=== PATIENT | male | born 1995 | race Caucasian/White ===

== ENCOUNTER 2021-06-15 02:22 | Emergency (ER) | payer MEDICAID, OTHER ==
[~2021-06-15] VITALS: Ht 183 cm; Wt 72.6 kg
[2021-06-15] MEDS ORDERED: KETOROLAC 30 MG/ML VIAL IVP STA (02:53)
[2021-06-15] MEDS ORDERED: LACTATED RINGERS 1,000 ML IV ONE (03:00)
[2021-06-15 03:02] LABS: BASOPHILS % (AUTO) 1 % (0-10); EOSINOPHILS # (AUTO) 0.1 10^3/uL (0.0-0.3); EOSINOPHILS % (AUTO) 1 % (0-10); HEMATOCRIT 39 % (40-54); HEMOGLOBIN 13.6 g/dL (13.3-17.7); LYMPHOCYTES # (AUTO) 2.3 10^3/uL (1.0-4.0); LYMPHOCYTES % (AUTO) 26 % (12-44); MEAN CORPUSCULAR HEMOGLOBIN 33 pg (25-34); MEAN CORPUSCULAR HGB CONC 35 g/dL (32-36); MEAN CORPUSCULAR VOLUME 95 fL (80-99); MEAN PLATELET VOLUME 10.2 fL (9.0-12.2); MONOCYTES # (AUTO) 0.6 10^3/uL (0.0-1.0); MONOCYTES % (AUTO) 7 % (0-12); NEUTROPHILS # (AUTO) 5.7 10^3/uL (1.8-7.8); NEUTROPHILS % (AUTO) 65 % (42-75); PLATELET COUNT 201 10^3/uL (130-400); WHITE BLOOD COUNT 8.7 10^3/uL (4.3-11.0)
[2021-06-15 03:03] LABS: BILIRUBIN,URINE NEGATIVE (NEGATIVE); CLARITY,URINE CLEAR; COLOR,URINE YELLOW; GLUCOSE, URINE (UA) NEGATIVE (NEGATIVE); KETONES,URINE TRACE (NEGATIVE); LEUKOCYTE ESTERASE ,URINE NEGATIVE (NEGATIVE); NITRITE,URINE NEGATIVE (NEGATIVE); PROTEIN,URINE NEGATIVE (NEGATIVE)
[2021-06-15 03:06] LABS: ALBUMIN 4.8 GM/DL (3.2-4.5); CHLORIDE 103 MMOL/L (98-107); POTASSIUM 3.5 MMOL/L (3.6-5.0); SODIUM 140 MMOL/L (135-145)
[2021-06-15 03:07] LABS: CALCIUM 9.8 MG/DL (8.5-10.1)
[2021-06-15 03:08] LABS: GLUCOSE 161 MG/DL (70-105); TOTAL PROTEIN 8.3 GM/DL (6.4-8.2)
[2021-06-15 03:09] LABS: CARBON DIOXIDE 23 MMOL/L (21-32)
[2021-06-15 03:10] LABS: RBC,URINE >100 /HPF
[2021-06-15 03:10] LABS: BILIRUBIN,TOTAL 1.1 MG/DL (0.1-1.0)
[2021-06-15 03:11] LABS: BACTERIA,URINE NEGATIVE /HPF; CALCIUM OXALATE CRYSTALS,UR FEW /LPF
[2021-06-15 03:12] LABS: ALKALINE PHOSPHATASE 69 U/L (40-136); CREATININE SERUM 1.35 MG/DL (0.60-1.30); GFR ESTIMATED 75
[2021-06-15 03:13] LABS: BUN/CREATININE RATIO 13
[2021-06-15 03:15] LABS: ALANINE AMINOTRANSFERASE 14 U/L (0-55)
[2021-06-15] MEDS ORDERED: ONDANSETRON 4 MG/2 ML (SDV) Z0FRAN IVP ONE (03:15)
[2021-06-15] MEDS ORDERED: HYDR-34 PO (03:43)
[2021-06-15] MEDS ORDERED: ONDA4TAB11 PO (03:43)
[2021-06-15] MEDS ORDERED: TMSL.4C PO (03:43)
[2021-06-15] MEDS ORDERED: RX-ONDANSETRON 4 MG ODT (ZOFRAN) PPK #4 PO STA (03:44)
--- NOTE | 2021-06-15 03:44 | ED GU-Male ---
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 REPORTS TAKING 500 MG IBUPROFEN APPROX 30 MIN AGO WITH NO RELIEF. ALSO REPORTS ATTEMPTING TO STRETCH HIS MUSCLES AND TAKE A HOT SHOWER TO HELP WITH PAIN. DENIES FEVER, N/V/D. PT BENT OVER IN PAIN WHEN CALLED TO ROOM AND CONTINUES TO MOVE AROUND IN ATTEMPT TO GET COMFORTABLE IN ROOM. Source: patient History of Present Illness Date Seen by Provider: Jun 15, 2021 Time Seen by Provider: 02:53 Initial Comments PT ARRIVES VIA POV FROM HOME C/O SUDDEN ONSET OF SEVERE RIGHT FLANK AND RIGHT MID ABDOMINAL PAIN--BEGAN 1 HOUR AGO NO RELIEF WITH IBUPROFEN NO NAUSEA/VOMITING NO FEVER NO URINARY SYMPTOMS NO HISTORY OF SIMILAR PCP: NONE Allergies and Home Medications Allergies Coded Allergies: No Known Drug Allergies (Unverified , 06/15/21) Patient Home Medication List Home Medication List Reviewed: Yes Hydrocodone Bit/Acetaminophen (HYDROcodone/APAP 7.5/325 TAB) 1 Ea Tablet, 1 EA PO Q4-6 PRN for PAIN Prescribed by: FARZANA KAUFFMAN on 06/15/21 0344 Ketorolac Tromethamine (Ketorolac Tromethamine) 10 Mg Tablet, 10 MG PO Q6H Prescribed by: FARZANA KAUFFMAN on 06/15/21 0353 Ondansetron (Ondansetron Odt) 4 Mg Tab.rapdis, 4 MG PO Q4H Prescribed by: FARZANA KAUFFMAN on 06/15/21 0343 Tamsulosin HCl (Flomax) 0.4 Mg Cap, 0.4 MG PO DAILY Prescribed by: FARZANA KAUFFMAN on 06/15/21 0343 Review of Systems Review of Systems Constitutional: no symptoms reported Respiratory: no symptoms reported Cardiovascular: no symptoms reported Gastrointestinal: see HPI Genitourinary: see HPI; denies burning, denies dysuria, denies frequency; flank pain; denies hematuria, denies pain, denies urgency Musculoskeletal: see HPI, back pain Skin: no symptoms reported Psychiatric/Neurological: No Symptoms Reported Endocrine: No Symptoms Reported Hematologic/Lymphatic: No Symptoms Reported Past Adrpggg-Zzpnio-Fwwkvz Hx Patient Social History Tobacco Use?: No Use of E-Cig and/or Vaping dev: Yes E-Cig or Vaping type used: Nicotine Use of E-Cig and/or Vaping Steven: Current Someday User Substance use?: Yes Substance type: Marijuana Substance frequency: Once in a while Alcohol Use?: Yes Alcohol type: Beer, Hard Liquor Alcohol Frequency: Couple times a week Pt feels they are or have been: No Immunizations Up To Date Influenza Vaccine Up-to-Date: No; Not Current First/Initial COVID19 Vaccinat: 2020 Second COVID19 Vaccination Yobani: DEC 2020 COVID19 Vaccine 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 oz. 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, no motor/sensory deficits, alert, oriented x 3 Skin: normal color, warm/dry; No rash Progress/Results/Core Measures Suspected Sepsis SIRS Temperature: Pulse: 50 Respiratory Rate: 18 Laboratory Tests 06/15/21 02:40: White Blood Count 8.7 Blood Pressure 151 /99 Mean: 116 Laboratory Tests 06/15/21 02:40: Creatinine 1.35H, Platelet Count 201, Total Bilirubin 1.1H Results/Orders Lab Results Laboratory Tests Test 06/15/21 02:38 06/15/21 02:40 Range/Units Urine Color YELLOW Urine Clarity CLEAR Urine pH 6.0 5-9 Urine Specific [place] >=1.030 1.016-1.022 Urine Protein NEGATIVE NEGATIVE Urine Glucose (UA) NEGATIVE NEGATIVE Urine Ketones TRACE H NEGATIVE Urine Nitrite NEGATIVE NEGATIVE Urine Bilirubin NEGATIVE NEGATIVE Urine Urobilinogen 0.2 < = 1.0 MG/DL Urine Leukocyte Esterase NEGATIVE NEGATIVE Urine RBC (Auto) 3+ H NEGATIVE Urine RBC >100 H /HPF Urine WBC NONE /HPF Urine Crystals PRESENT H /LPF Urine Calcium Oxalate Crystals FEW H /LPF Urine Bacteria NEGATIVE /HPF Urine Casts NONE /LPF Urine Mucus NEGATIVE /LPF Urine Culture Indicated NO White Blood Count 8.7 4.3-11.0 10^3/uL Red Blood Count 4.15 L 4.30-5.52 10^6/uL Hemoglobin 13.6 13.3-17.7 g/dL Hematocrit 39 L 40-54 % Mean Corpuscular Volume 95 80-99 fL Mean Corpuscular Hemoglobin 33 25-34 pg Mean Corpuscular Hemoglobin Concent 35 32-36 g/dL Red Cell Distribution Width 12.0 10.0-14.5 % Platelet Count 201 130-400 10^3/uL Mean Platelet Volume 10.2 9.0-12.2 fL Immature Granulocyte % (Auto) 0 % Neutrophils (%) (Auto) 65 42-75 % Lymphocytes (%) (Auto) 26 12-44 % Monocytes (%) (Auto) 7 0-12 % Eosinophils (%) (Auto) 1 0-10 % Basophils (%) (Auto) 1 0-10 % Neutrophils # (Auto) 5.7 1.8-7.8 10^3/uL Lymphocytes # (Auto) 2.3 1.0-4.0 10^3/uL Monocytes # (Auto) 0.6 0.0-1.0 10^3/uL Eosinophils # (Auto) 0.1 0.0-0.3 10^3/uL Basophils # (Auto) 0.0 0.0-0.1 10^3/uL Immature Granulocyte # (Auto) 0.0 0.0-0.1 10^3/uL Sodium Level 140 135-145 MMOL/L Potassium Level 3.5 L 3.6-5.0 MMOL/L Chloride Level 103 98-107 MMOL/L Carbon Dioxide Level 23 21-32 MMOL/L Anion Gap 14 5-14 MMOL/L Blood Urea Nitrogen 18 7-18 MG/DL Creatinine 1.35 H 0.60-1.30 MG/DL Estimat Glomerular Filtration Rate 75 BUN/Creatinine Ratio 13 Glucose Level 161 H 70-105 MG/DL Calcium Level 9.8 8.5-10.1 MG/DL Corrected Calcium 8.5-10.1 MG/DL Total Bilirubin 1.1 H 0.1-1.0 MG/DL Aspartate Amino Transf (AST/SGOT) 16 5-34 U/L Alanine Aminotransferase (ALT/SGPT) 14 0-55 U/L Alkaline Phosphatase 69 40-136 U/L Total Protein 8.3 H 6.4-8.2 GM/DL Albumin 4.8 H 3.2-4.5 GM/DL My Orders Orders - FARZANA KAUFFMAN DO Ed Iv/Invasive Line Start (06/15/21 02:53) Ct Abd/Pelvis Wo(Kidney Stone) (06/15/21 02:53) Abdomen/Kub 1view (06/15/21 02:53) Cbc With Automated Diff (06/15/21 02:53) Comprehensive Metabolic Panel (06/15/21 02:53) Ua Culture If Indicated (06/15/21 02:53) Ed Iv/Invasive Line Start (06/15/21 02:53) Ed Iv/Invasive Line Start (06/15/21 02:53) Lactated Ringers (Lr 1000 Ml Iv Solution (06/15/21 03:00) Ketorolac Injection (Toradol Injection) (06/15/21 02:53) Ondansetron Injection (Zofran Injectio (06/15/21 03:15) Tamsulosin Capsule (Flomax Capsule) (06/15/21 03:45) Rx-Hydrocodone/Apap 5-325 Mg (Rx-Vicodin (06/15/21 03:45) Rx-Ondansetron Po (Rx-Zofran Po) (06/15/21 03:44) Medications Given in ED Current Medications Medications Dose Ordered Sig/Jordan Route Start Time Stop Time Status Last Admin Dose Admin Acetaminophen/ Hydrocodone Bitart 1 ea Q4H PRN PO 06/15/21 03:45 06/15/21 03:52 1 EA Lactated Ringer's 1,000 ml @ 0 mls/hr Q0M ONCE IV 06/15/21 03:00 06/15/21 03:01 DC 06/15/21 03:01 0 MLS/HR Ondansetron HCl 4 mg ONCE ONCE IVP 06/15/21 03:15 06/15/21 03:16 DC 06/15/21 03:13 4 MG Vital Signs/I&O 06/15/21 02:45 Temp 36.9 Pulse 50 Resp 18 B/P (MAP) 151/99 (116) Pulse Ox 100 O2 Delivery Room Air Capillary Refill : Less Than 3 Seconds Blood Pressure Mean: 116 Progress Note : Progress Note GIVEN IV FLUIDS, TORADOL AND ZOFRAN WITH COMPLETE RELIEF OF SYMPTOMS Diagnostic Imaging Comments KUB--NO ACUTE PROCESS, PENDING RADIOLOGIST REVIEW CT ABDOMEN/PELVIS--3 MM RIGHT DISTAL URETERAL STONE WITH MILD RIGHT HYDRONEPHROSIS, PER [facility] VIA FAX AT [id number] Reviewed: Reviewed by Me Departure Impression Primary Impression: Right distal ureteral calculus Disposition: HOME, SELF-CARE Condition: Improved Departure-Patient Inst. Decision time for Depature: 03:41 Referrals: NO,LOCAL PHYSICIAN (PCP) Primary Care Physician AMIRA OG MD Patient Instructions: Kidney Stone, Adult ED, How to Strain Your Urine Add. Discharge Instructions: LOTS OF CLEAR LIQUIDS STRAIN ALL URINE--RETURN ANY STONES TO UROLOGIST OFFICE FOLLOW UP WITH DR. OG, UROLOGIST, THIS WEEK FOR FURTHER CARE--CALL IN THE MORNING TO SCHEDULE APPOINTMENT All discharge instructions reviewed with patient and/or family. Voiced understanding. Scripts Ketorolac Tromethamine (Ketorolac Tromethamine) 10 Mg Tablet 10 MG PO Q6H for Pain, #15 TAB Prov: JAMARI,FARZANA K DO 06/15/21 Ondansetron (Ondansetron Odt) 4 Mg Tab.rapdis 4 MG PO Q4H for Nausea/Vomiting, #10 TAB Prov: JAMARI,FARZANA K DO 06/15/21 Hydrocodone Bit/Acetaminophen (HYDROcodone/APAP 7.5/325 TAB) 1 Ea Tablet 1 EA PO Q4-6 PRN for PAIN, #20 TAB Prov: JAMARI,FARZANA K DO 06/15/21 Tamsulosin HCl (Flomax) 0.4 Mg Cap 0.4 MG PO DAILY, #10 CAP Prov: JAMARI,FARZANA K DO 06/15/21 JAMARI,FARZANA K DO Jun 15, 2021 03:44
[2021-06-15] MEDS ORDERED: TAMSULOSIN 0.4 MG (FLOMAX) CAP PO SCH (03:45)
[2021-06-15] MEDS ORDERED: KETO10TA PO (03:53)
[2021-06-15 04:00] VITALS: BP 100/88
--- NOTE | 2021-06-15 05:34 | Diagnostic Imaging Report ---
INDICATION: Abdominal pain COMPARISON: None FINDINGS: Single supine radiographic view of the abdomen was obtained and demonstrates nondistended loops of small bowel. There is no large collection of free peritoneal air. Mild air and stool are seen scattered throughout the colon. No unexpected extraosseous calcifications or radiopaque foreign bodies are seen. Bony structures show no gross acute abnormalities. IMPRESSION: 1. Nonobstructed small bowel gas pattern. Dictated by: Dictated on workstation # [id number]
--- NOTE | 2021-06-15 07:10 | Diagnostic Imaging Report ---
PROCEDURE: CT urinary tract, rule out kidney stone. TECHNIQUE: Multiple contiguous axial images were obtained through the abdomen and pelvis without the use of intravenous contrast. Auto Exposure Controls were utilized during the CT exam to meet ALARA standards for radiation dose reduction. INDICATION: Flank pain FINDINGS: The heart size is normal. Lung bases are clear. Liver is normal in size without focal lesions. Gallbladder is unremarkable. There is no biliary duct dilatation. The spleen is normal. The pancreas, adrenal glands, and kidneys are normal in appearance. The aorta is nonaneurysmal. There does appear to be a 2 to 3 mm stone in the distal right ureter just proximal to the right UVJ. There is no free air. There is no ascites. There are no focal inflammatory changes. There is no pelvic mass, adenopathy or free fluid. The osseous structures are unremarkable. IMPRESSION: A 2 to 3 mm stone that appears to be in the distal right ureter just proximal to the right UVJ. There may be some minimal right hydronephrosis. Dictated by: Dictated on workstation # [id number]
[2021-06-16] MEDS ORDERED: OXYC1TAB87 PO (15:37)
== END 2021-06-15 03:59 | disposition home or self-care (01) ==
LOC: ER 02:25
DX: N13.2 Hydronephrosis with renal and ureteral calculous obstruction (principal); F17.290 Nicotine dependence, other tobacco product, uncomplicated
CPT/HCPCS: 36415; 74018; 74176; 80053; 81000; 85025

== ENCOUNTER 2021-06-16 13:58 | Emergency (ER) | payer MEDICAID ==
[~2021-06-16] VITALS: Ht 182 cm; Wt 72.5 kg
[~2021-06-16 13:58] MED LIST: HYDR-34 PO; KETO10TA PO; ONDA4TAB11 PO; TMSL.4C PO
--- NOTE | 2021-06-16 14:42 | ED Abdominal Pain ---
General Chief Complaint: Abdominal/GI Problems Stated Complaint: RLQ PAIN Nursing Triage Note: PT AMBULATORY TO ER, REPORTS SEEN IN ER SEVERAL DAYS AGO, DX WITH KIDNEY STONE ON R SIDE, PT C/O CONTINUED PAIN, UNRELIEVED WITH HYDROCODONE. Source of Information: Patient Exam Limitations: No Limitations (KATHIE LOJA STUDENT) History of Present Illness Date Seen by Provider: Jun 16, 2021 Time Seen by Provider: 14:30 Initial Comments Patient is a 26yoM who presents with chief complaint of RLQ pain radiating to back and down leg with numbness of right leg. He was diagnosed with a 2-3mm kidney stone proximal to right UVJ at [facility] ED yesterday and achieved complete resolution of symptoms with Toradol, Flomax and Zofran. He was sent home with hydrocodone (last dose 12pm today), but he cannot achieve adequate pain control. Nausea is under control with home prescription of Zofran and he has also taken Flomax today. He denies blood in urine but states he is not urinating as much as usual. He has been straining urine since Tuesday. Patient also complains of constipation which he attributes to pain medication. He is drinking water only and has been able to eat normally. Patient is diaphoretic and in severe pain. Timing/Duration: 1-2 Days Severity/Quality: Severe Location: RUQ Radiation: Flank Modifying Factors: Improves With Analgesics (KATHIE LOJA STUDENT) Allergies and Home Medications Allergies Coded Allergies: No Known Drug Allergies (Unverified , 06/15/21) Patient Home Medication List Home Medication List Reviewed: Yes (MORE HENSLEY MD) Hydrocodone Bit/Acetaminophen (HYDROcodone/APAP 7.5/325 TAB) 1 Ea Tablet, 1 EA PO Q4-6 PRN for PAIN Prescribed by: FARZANA KAUFFMAN on 06/15/21 0344 Ketorolac Tromethamine (Ketorolac Tromethamine) 10 Mg Tablet, 10 MG PO Q6H Prescribed by: FARZANA KAUFFMAN on 06/15/21 035 Ondansetron (Ondansetron Odt) 4 Mg Tab.rapdis, 4 MG PO Q4H Prescribed by: FARZANA KAUFFMAN on 06/15/21 0343 Oxycodone HCl/Acetaminophen (Percocet 5-325 mg Tablet) 1 Each Tablet, 1 TAB PO Q6H Prescribed by: MORE HENSLEY on 06/16/21 1537 Tamsulosin HCl (Flomax) 0.4 Mg Cap, 0.4 MG PO DAILY Prescribed by: FARZANA KAUFFMAN on 06/15/21 0343 Review of Systems Review of Systems Constitutional: No chills, No dizziness, No fever EENTM: No Nose Congestion, No Throat Pain Respiratory: Denies Cough, Denies Shortness of Air Cardiovascular: Denies Chest Pain, Denies Edema Gastrointestinal: Denies Abdomen Distended, Denies Blood Streaked Stools; Constipated; Denies Diarrhea; Nausea; Denies Vomiting Genitourinary: Denies Burning, Denies Discharge; Flank Pain; Denies Hematuria Musculoskeletal: back pain (right flank) Skin: no symptoms reported Psychiatric/Neurological: Numbness (of right leg secondary to severe RLQ pain) Endocrine: No Symptoms Reported Hematologic/Lymphatic: No Symptoms Reported (KATHIE LOJA Snap[employer] STUDENT) Past Cjjbhca-Ohepci-Jlrnjk Hx Patient Social History Tobacco Use?: No Use of E-Cig and/or Vaping dev: No Substance use?: No Alcohol Use?: No Pt feels they are or have been: No (MAVERICKMetacloudLINCOLN,KATHIE Snap[employer]ense STUDENT) Immunizations Up To Date First/Initial COVID19 Vaccinat: RECEIVED, UNK WHEN Second COVID19 Vaccination Yobani: RECEIVED, UNK WHEN (KATHIE LOJA Snap[employer]ense STUDENT) Past Medical History Surgery/Hospitalization HX: TONSILECTOMY Surgeries: Yes Tonsillectomy Respiratory: No Cardiac: No Neurological: No Genitourinary: No Gastrointestinal: No Musculoskeletal: No Endocrine: No HEENT: No Cancer: No Psychosocial: No Integumentary: No Blood Disorders: No (MAVERICKMetacloudKATHIE STARK Snap[employer]ense STUDENT) Physical Exam Vital Signs Vital Signs - First Documented 06/16/21 14:16 Temp 36.7 Pulse 73 Resp 20 B/P (MAP) 131/75 (93) Pulse Ox 99 O2 Delivery Room Air (MORE HENSLEY MD) Vital Signs Capillary Refill : (KATHIE LOJA MED STUDENT) Height/Weight/BMI Height: '" Weight: lbs. oz. 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, no motor/sensory deficits, alert, normal mood/affect, oriented x 3 Skin: normal color, warm/dry Lymphatic: no adenopathy (KATHIE LOJA MED STUDENT) Progress/Results/Core Measures Results/Orders Lab Results Laboratory Tests Test 06/16/21 14:49 06/16/21 14:56 Range/Units Urine Color YELLOW Urine Clarity CLEAR Urine pH 6.0 5-9 Urine Specific [place] 1.020 1.016-1.022 Urine Protein NEGATIVE NEGATIVE Urine Glucose (UA) NEGATIVE NEGATIVE Urine Ketones NEGATIVE NEGATIVE Urine Nitrite NEGATIVE NEGATIVE Urine Bilirubin NEGATIVE NEGATIVE Urine Urobilinogen 0.2 < = 1.0 MG/DL Urine Leukocyte Esterase NEGATIVE NEGATIVE Urine RBC (Auto) 1+ H NEGATIVE Urine RBC 2-5 H /HPF Urine WBC RARE /HPF Urine Crystals NONE /LPF Urine Bacteria NEGATIVE /HPF Urine Casts NONE /LPF Urine Mucus NEGATIVE /LPF Urine Culture Indicated NO Sodium Level 139 135-145 MMOL/L Potassium Level 4.2 3.6-5.0 MMOL/L Chloride Level 104 98-107 MMOL/L Carbon Dioxide Level 24 21-32 MMOL/L Anion Gap 11 5-14 MMOL/L Blood Urea Nitrogen 21 H 7-18 MG/DL Creatinine 1.52 H 0.60-1.30 MG/DL Estimat Glomerular Filtration Rate 65 BUN/Creatinine Ratio 14 Glucose Level 89 70-105 MG/DL Calcium Level 9.2 8.5-10.1 MG/DL (MORE HENSLEY MD) My Orders Orders - MORE HENSLEY MD Ed Iv/Invasive Line Start (06/16/21 14:33) Basic Metabolic Panel (06/16/21 14:33) Ua Culture If Indicated (06/16/21 14:33) Abdomen/Kub 1view (06/16/21 14:33) Ns Iv 1000 Ml (Sodium Chloride 0.9%) (06/16/21 14:45) Ketorolac Injection (Toradol Injection) (06/16/21 14:45) Morphine Injection (Morphine Injection (06/16/21 15:47) Ondansetron Injection (Zofran Injectio (06/16/21 15:54) (MORE HENSLEY MD) Medications Given in ED Current Medications Medications Dose Ordered Sig/Jordan Route Start Time Stop Time Status Last Admin Dose Admin Ketorolac Tromethamine 15 mg ONCE ONCE IVP 06/16/21 14:45 06/16/21 14:46 DC 06/16/21 14:50 15 MG Ondansetron HCl 4 mg STK-MED ONCE .ROUTE 06/16/21 15:54 06/16/21 15:56 DC 06/16/21 15:59 4 MG (MORE HENSLEY MD) Vital Signs/I&O 06/16/21 06/16/21 06/16/21 14:16 14:49 15:48 Temp 36.7 Pulse 73 66 76 Resp 20 18 18 B/P (MAP) 131/75 (93) 134/84 128/69 Pulse Ox 99 99 100 O2 Delivery Room Air Room Air Room Air (MORE HENSLEY MD) Blood Pressure Mean: 93 Progress Progress Note #1: Time: 15:34 Progress Note 26-year-old male to the emergency department chief complaint of right lower quadrant abdominal pain. Diagnosed with a 3 mm distal right ureteral stone 48 hours ago. Pain is uncontrollable at this time. Nauseous, sweating. Physical exam remarkable for right flank pain. Slight diaphoresis. Patient treated in the emergency department with Toradol, IV fluids. Repeat KUB does not reveal the stone. Urine is not infected. Renal function is about where it was 48 hours ago. Plan to send the patient home with continued Flomax, nausea medicine and change him over to Percocet. Encourage fluids. Follow-up with Progress Note #2: Time: 16:13 Progress Note Went to discharge patient - pain had rebounded up to a "7". will give morphine. He is going to arrange for a ride home and not drive. (MORE HENSLEY MD) Departure Impression Primary Impression: Ureterolithiasis Disposition: 01 HOME, SELF-CARE Condition: Stable Departure-Patient Inst. Decision time for Depature: 15:35 (MORE HENSLEY MD) Referrals: NO,LOCAL PHYSICIAN (PCP) Primary Care Physician AMIRA OG MD Patient Instructions: Kidney Stones in Adults Add. Discharge Instructions: Continue to drink lots of fluids to stay well-hydrated. Continue the Flomax and Zofran as needed for nausea. I have changed your pain medicine over to Percocet. You can take 1 every 6 hours as needed for severe pain. Alternate with ibuprofen, 600 mg every 6 hours with food. You need to take stool softeners twice a day every day while taking narcotic pain medications. Come back to the emergency department for any fever or pain that is not controlled with these medications. I have given you contact information for the urologist on-call. Please call to make an appointment for follow-up if the stone has not passed in the next 3 to 4 days. Scripts Oxycodone HCl/Acetaminophen (Percocet 5-325 mg Tablet) 1 Each Tablet 1 TAB PO Q6H for PAIN-MODERATE MDD 6 TABS, #15 TAB Prov: MORE HENSLEY MD 06/16/21 Verification and Attestation of Medical Student E/M Service A medical student performed and documented this service in my presence. I reviewed and verified all information documented by the medical student and made modifications to such information, when appropriate. I personally performed the physical exam and medical decision making. More Hensley, Jun 16, 2021,15:37 (MORE HENSLEY MD) KATHEI LOJA MED STUDENT Jun 16, 2021 14:42 MORE HENSLEY MD Jun 16, 2021 15:37
[2021-06-16] MEDS ORDERED: NS IV 1000 ML 1,000 ML IV SCH (14:45)
[2021-06-16] MEDS ORDERED: KETOROLAC 30 MG/ML VIAL IVP ONE (14:45)
[2021-06-16 14:52] LABS: BILIRUBIN,URINE NEGATIVE (NEGATIVE); CLARITY,URINE CLEAR; COLOR,URINE YELLOW; GLUCOSE, URINE (UA) NEGATIVE (NEGATIVE); KETONES,URINE NEGATIVE (NEGATIVE); LEUKOCYTE ESTERASE ,URINE NEGATIVE (NEGATIVE); NITRITE,URINE NEGATIVE (NEGATIVE); PROTEIN,URINE NEGATIVE (NEGATIVE)
--- NOTE | 2021-06-16 14:52 | Diagnostic Imaging Report ---
INDICATION: Right-sided abdominal pain. TIME OF EXAM: 02:44 p.m. FINDINGS: No definite pelvic calcifications are seen to account for the distal right ureteric calculus noted one day earlier. Bowel gas pattern is unremarkable. No free air is seen. IMPRESSION: No acute feature seen. The right-sided distal ureteric calculus noted on CT one day earlier is not appreciated by KUB. Dictated by: Dictated on workstation # [id number]
[2021-06-16 14:59] LABS: BACTERIA,URINE NEGATIVE /HPF; WBC,URINE RARE /HPF
[2021-06-16 15:14] LABS: POTASSIUM 4.2 MMOL/L (3.6-5.0)
[2021-06-16 15:16] LABS: CALCIUM 9.2 MG/DL (8.5-10.1)
[2021-06-16 15:20] LABS: CREATININE SERUM 1.52 MG/DL (0.60-1.30)
[2021-06-16] MEDS ORDERED: OXYC1TAB87 PO (15:37)
[2021-06-16] MEDS ORDERED: morphine INJ 10 MG/ML 1ML (SYR OR VIAL) IVP STA (15:47)
[2021-06-16] MEDS ORDERED: ONDANSETRON 4 MG/2 ML (SDV) Z0FRAN ONE (15:54)
[2021-06-16] MEDS ORDERED: ONDANSETRON 4 MG/2 ML (SDV) Z0FRAN IVP ONE (16:15)
[2021-06-16 16:23] VITALS: BP 127/78
== END 2021-06-16 16:24 | disposition home or self-care (01) ==
LOC: EDUNIT# 13:58 → ER 14:00
DX: N20.1 Calculus of ureter (principal)
CPT/HCPCS: 36415; 74018; 80048; 81000

== ENCOUNTER 2021-06-19 11:36 | Emergency (ER) | payer MEDICAID ==
[~2021-06-19] VITALS: Ht 182 cm; Wt 72.5 kg
[~2021-06-19 11:36] MED LIST changes: +OXYC1TAB87 PO
[2021-06-19] MEDS ORDERED: fentaNYL INJ 100 MCG/2 ML AMP IVP ONE ×2 (12:30→14:00)
[2021-06-19] MEDS ORDERED: KETOROLAC 30 MG/ML VIAL IVP ONE (12:30)
--- NOTE | 2021-06-19 12:33 | ED GU-Male ---
General Chief Complaint: Abdominal/GI Problems Stated Complaint: KIDNEY STONES Nursing Triage Note: PT PRESENTS TO ED FROM HOME WITH COMPLAINTS OF CONTINUED ABDOMINAL PAIN. PT WAS DIAGNOSED WITH A KIDNEY STONE ON TUESDAY AND REPORTS PAIN MEDICATION HAS NOT HELPED. Source: patient Exam Limitations: no limitations History of Present Illness Date Seen by Provider: Jun 19, 2021 Time Seen by Provider: 12:33 Initial Comments To ER with severe right lower abdominal pain rated 8 out of 10. He was here on 06/15/2021 with this and diagnosed with a 2 to 3 mm stone in the distal right ureter at the UVJ. He was then back on Tuesday for persistent symptoms. Hydrocodone was changed to oxycodone which did provide some relief. He comes in today for ongoing pain. No fevers no vomiting. Pain is in the same location. Timing/Duration: constant Severity/Quality: moderate Location: unknown Radiation: none Activities at Onset: none Prior Genitourinary Problems: none Associated Symptoms: nausea/vomiting Allergies and Home Medications Allergies Coded Allergies: No Known Drug Allergies (Unverified , 06/15/21) Patient Home Medication List Home Medication List Reviewed: Yes Hydrocodone Bit/Acetaminophen (HYDROcodone/APAP 7.5/325 TAB) 1 Ea Tablet, 1 EA PO Q4-6 PRN for PAIN Prescribed by: FARZANA KAUFFMAN on 06/15/21 034 Ketorolac Tromethamine (Ketorolac Tromethamine) 10 Mg Tablet, 10 MG PO Q6H Prescribed by: FARZANA KAUFFMAN on 06/15/21 0353 Ondansetron (Ondansetron Odt) 4 Mg Tab.rapdis, 4 MG PO Q4H Prescribed by: FARZANA KAUFFMAN on 06/15/21 034 Oxycodone HCl/Acetaminophen (Percocet 5-325 mg Tablet) 1 Each Tablet, 1 TAB PO Q6H Prescribed by: MORE HENSLEY on 06/16/21 1537 Tamsulosin HCl (Flomax) 0.4 Mg Cap, 0.4 MG PO DAILY Prescribed by: FARZANA KAUFFMAN on 06/15/21 034 Review of Systems Review of Systems Constitutional: see HPI EENTM: see HPI Respiratory: no symptoms reported Cardiovascular: no symptoms reported Genitourinary: no symptoms reported Musculoskeletal: see HPI Skin: no symptoms reported Psychiatric/Neurological: No Symptoms Reported Endocrine: No Symptoms Reported Past Bzaurxs-Oynxpo-Ildyoi Hx Immunizations Up To Date First/Initial COVID19 Vaccinat: RECEIVED, UNK WHEN Second COVID19 Vaccination Yobani: RECEIVED, UNK WHEN Third COVID19 Vaccination Date: RECEIVED, UNK WHEN Past Medical History Surgery/Hospitalization HX: TONSILECTOMY Surgeries: Yes Tonsillectomy Respiratory: No Cardiac: No Neurological: No Genitourinary: No Gastrointestinal: No Musculoskeletal: No Endocrine: No HEENT: No Cancer: No Psychosocial: No Integumentary: No Blood Disorders: No Physical Exam Vital Signs Vital Signs - First Documented 06/19/21 12:15 Temp 36.5 Pulse 80 Resp 20 B/P (MAP) 128/78 (95) Pulse Ox 98 Capillary Refill : Less Than 3 Seconds Height, Weight, BMI Height: '" Weight: lbs. oz. kg; 21.00 BMI Method: General Appearance: WD/WN, no apparent distress HEENT: PERRL/EOMI, normal ENT inspection Respiratory: no respiratory distress, no accessory muscle use Gastrointestinal: normal bowel sounds, non tender, soft Extremities: normal range of motion, non-tender Neurologic/Psychiatric: alert, normal mood/affect, oriented x 3 Skin: normal color, warm/dry Progress/Results/Core Measures Suspected Sepsis SIRS Temperature: Pulse: 80 Respiratory Rate: 20 Laboratory Tests 06/19/21 12:26: White Blood Count 8.7 Blood Pressure 128 /78 Mean: 95 Laboratory Tests 06/19/21 12:26: Creatinine 1.43H, Platelet Count 159 Results/Orders Lab Results Laboratory Tests Test 06/19/21 12:22 06/19/21 12:26 Range/Units Urine Color YELLOW Urine Clarity CLEAR Urine pH 6.0 5-9 Urine Specific [place] <=1.005 1.016-1.022 Urine Protein NEGATIVE NEGATIVE Urine Glucose (UA) NEGATIVE NEGATIVE Urine Ketones NEGATIVE NEGATIVE Urine Nitrite NEGATIVE NEGATIVE Urine Bilirubin NEGATIVE NEGATIVE Urine Urobilinogen 0.2 < = 1.0 MG/DL Urine Leukocyte Esterase NEGATIVE NEGATIVE Urine RBC (Auto) 2+ H NEGATIVE Urine RBC 2-5 H /HPF Urine WBC 0-2 /HPF Urine Crystals NONE /LPF Urine Bacteria TRACE /HPF Urine Casts NONE /LPF Urine Mucus NEGATIVE /LPF Urine Culture Indicated NO White Blood Count 8.7 4.3-11.0 10^3/uL Red Blood Count 3.92 L 4.30-5.52 10^6/uL Hemoglobin 12.9 L 13.3-17.7 g/dL Hematocrit 38 L 40-54 % Mean Corpuscular Volume 96 80-99 fL Mean Corpuscular Hemoglobin 33 25-34 pg Mean Corpuscular Hemoglobin Concent 34 32-36 g/dL Red Cell Distribution Width 12.1 10.0-14.5 % Platelet Count 159 130-400 10^3/uL Mean Platelet Volume 9.7 9.0-12.2 fL Immature Granulocyte % (Auto) 0 % Neutrophils (%) (Auto) 78 H 42-75 % Lymphocytes (%) (Auto) 15 12-44 % Monocytes (%) (Auto) 6 0-12 % Eosinophils (%) (Auto) 1 0-10 % Basophils (%) (Auto) 0 0-10 % Neutrophils # (Auto) 6.8 1.8-7.8 10^3/uL Lymphocytes # (Auto) 1.3 1.0-4.0 10^3/uL Monocytes # (Auto) 0.5 0.0-1.0 10^3/uL Eosinophils # (Auto) 0.1 0.0-0.3 10^3/uL Basophils # (Auto) 0.0 0.0-0.1 10^3/uL Immature Granulocyte # (Auto) 0.0 0.0-0.1 10^3/uL Sodium Level 138 135-145 MMOL/L Potassium Level 4.2 3.6-5.0 MMOL/L Chloride Level 101 98-107 MMOL/L Carbon Dioxide Level 27 21-32 MMOL/L Anion Gap 10 5-14 MMOL/L Blood Urea Nitrogen 16 7-18 MG/DL Creatinine 1.43 H 0.60-1.30 MG/DL Estimat Glomerular Filtration Rate 70 BUN/Creatinine Ratio 11 Glucose Level 94 70-105 MG/DL Calcium Level 9.4 8.5-10.1 MG/DL My Orders Orders - DA JAIMES APRN Ct Abd/Pelvis Wo(Kidney Stone) (06/19/21 12:29) Ketorolac Injection (Toradol Injection) (06/19/21 12:30) Fentanyl Inj (Sublimaze Injection) (06/19/21 12:30) Ua Culture If Indicated (06/19/21 12:29) Cbc With Automated Diff (06/19/21 12:29) Basic Metabolic Panel (06/19/21 12:29) Ed Iv/Invasive Line Start (06/19/21 12:29) Tamsulosin Capsule (Flomax Capsule) (06/19/21 12:45) Lorazepam Injection (Ativan Injection) (06/19/21 12:45) Lactated Ringers (Lr 1000 Ml Iv Solution (06/19/21 12:45) Fentanyl Inj (Sublimaze Injection) (06/19/21 14:00) Medications Given in ED Current Medications Medications Dose Ordered Sig/Jordan Route Start Time Stop Time Status Last Admin Dose Admin Fentanyl Citrate 50 mcg ONCE ONCE IVP 06/19/21 14:00 06/19/21 14:01 DC 06/19/21 13:55 50 MCG Ketorolac Tromethamine 15 mg ONCE ONCE IVP 06/19/21 12:30 06/19/21 12:33 DC 06/19/21 12:42 15 MG Lorazepam 0.5 mg ONCE PRN IVP 06/19/21 12:45 06/19/21 12:42 0.5 MG Vital Signs/I&O 06/19/21 12:15 Temp 36.5 Pulse 80 Resp 20 B/P (MAP) 128/78 (95) Pulse Ox 98 Capillary Refill : Less Than 3 Seconds Blood Pressure Mean: 95 Departure Communication (Admissions) Family Conversation Spoke with Dr. Bender, agrees the stone will likely pass in the next 24 hours or so. Continue current management. Patient is sleeping at this time but when I awaken him he rates the pain at 4 out of 10, down from 8 out of 10. I discussed with him that he could increase his Percocet dose from one of the 5/325 tablets to 1.5 or 2 of them every 6 hours. He will call a ride to come get him. We will do a dose of fentanyl here for additional pain relief. NAME: ATIYA ARMENTA MED REC#: [id number] PT STATUS: REG ER : 1995 PHYSICIAN: DA JAIMES APRN ADMIT DATE: 06/19/21/ER Draft Date of Exam:06/19/21 CT ABD/PELVIS WO(KIDNEY STONE) PROCEDURE: CT urinary tract, rule out kidney stone. TECHNIQUE: Multiple contiguous axial images were obtained through the abdomen and pelvis without the use of intravenous contrast. Auto Exposure Controls were utilized during the CT exam to meet ALARA standards for radiation dose reduction. INDICATION: Follow-up urinary obstruction. Possible ureteral calculus. COMPARISON: 06/15/2021 FINDINGS: Included portions of the lung bases are clear. CT ABDOMEN: Again identified is mild right-sided hydroureteronephrosis. Right ureter is difficult to follow in a contiguous fashion, but there is calculus within the lower right hemipelvis that measures approximately 3 mm and is presumed to be within the distal right ureter. This is felt to be stable in position when compared to 06/15/2021. No other renal or ureteral calculi are seen. There is no hydroureteronephrosis or other evidence of obstruction on the left. The adrenal glands, spleen, pancreas, and liver have an unremarkable noncontrast CT appearance. Small bowel loops are nondistended. Normal appendix is identified. There is no loculated fluid collection, free fluid or free air within the abdomen. No abnormal mesenteric or retroperitoneal adenopathy is seen. Osseous structures show no acute abnormalities. CT PELVIS: Again, there is 3 mm calculus identified in the distal right ureter. No additional calculi are seen within urinary bladder. Urinary bladder is opacified. There is no loculated fluid collection free fluid or free air within the pelvis. No abnormal adenopathy is seen. Osseous structures show no acute abnormalities. IMPRESSION: 1. Redemonstration 3 mm calculus within the distal right ureter. Again, this appears to be in stable position compared to prior exam. Additionally, there is persistent mild right-sided hydroureteronephrosis. Dictated on workstation # [id number] Dict: 06/19/21 1316 Trans: 06/19/21 1323 [id number] Interpreted by: SERENITY COPE MD Electronically signed by: Impression Primary Impression: Right distal ureteral calculus Disposition: HOME, SELF-CARE Condition: Stable Departure-Patient Inst. Decision time for Depature: 13:44 Referrals: NO,LOCAL PHYSICIAN (PCP) Primary Care Physician Add. Discharge Instructions: 1. It looks like your stone has moved a little bit and is nearly into the bladder, about 2 mm away. Once he gets into the bladder your pain will tremendously improved. You can increase your Percocet from 1 tablet every 4 hours to 1.5 or 2 tablets every 6 hours. Continue with ibuprofen 800 mg every 8 hours. Continue with Flomax. Return to ER for any fevers or intolerable pain. This is very painful but you are almost through it, this is a small stone and is very near to the bladder. This likely will not require any intervention. If she still has not passed it and are having persistent pain on Tuesday then it would be a good idea to call urologist of your choosing, we have Dr. Bender here in [place], his office however does not accept [place] Medicaid. Additionally there are 2 or 3 urologists and [place]. All discharge instructions reviewed with patient and/or family. Voiced understanding. DA JAIMES APRN Jun 19, 2021 12:33
[2021-06-19 12:45] LABS: POTASSIUM 4.2 MMOL/L (3.6-5.0)
[2021-06-19] MEDS ORDERED: LACTATED RINGERS 1,000 ML IV SCH (12:45)
[2021-06-19] MEDS ORDERED: TAMSULOSIN 0.4 MG (FLOMAX) CAP PO SCH (12:45)
[2021-06-19] MEDS ORDERED: LORazepam INJ 2 MG/ML (ATIVAN) VIAL IVP PRN (12:45)
[2021-06-19 12:46] LABS: CALCIUM 9.4 MG/DL (8.5-10.1)
[2021-06-19 12:47] LABS: BASOPHILS % (AUTO) 0 % (0-10); EOSINOPHILS # (AUTO) 0.1 10^3/uL (0.0-0.3); EOSINOPHILS % (AUTO) 1 % (0-10); HEMATOCRIT 38 % (40-54); HEMOGLOBIN 12.9 g/dL (13.3-17.7); LYMPHOCYTES # (AUTO) 1.3 10^3/uL (1.0-4.0); LYMPHOCYTES % (AUTO) 15 % (12-44); MEAN CORPUSCULAR HEMOGLOBIN 33 pg (25-34); MEAN CORPUSCULAR HGB CONC 34 g/dL (32-36); MEAN CORPUSCULAR VOLUME 96 fL (80-99); MEAN PLATELET VOLUME 9.7 fL (9.0-12.2); MONOCYTES # (AUTO) 0.5 10^3/uL (0.0-1.0); MONOCYTES % (AUTO) 6 % (0-12); NEUTROPHILS # (AUTO) 6.8 10^3/uL (1.8-7.8); NEUTROPHILS % (AUTO) 78 % (42-75); PLATELET COUNT 159 10^3/uL (130-400); WHITE BLOOD COUNT 8.7 10^3/uL (4.3-11.0)
[2021-06-19 12:50] LABS: CREATININE SERUM 1.43 MG/DL (0.60-1.30)
[2021-06-19 12:53] LABS: BILIRUBIN,URINE NEGATIVE (NEGATIVE); CLARITY,URINE CLEAR; COLOR,URINE YELLOW; GLUCOSE, URINE (UA) NEGATIVE (NEGATIVE); KETONES,URINE NEGATIVE (NEGATIVE); LEUKOCYTE ESTERASE ,URINE NEGATIVE (NEGATIVE); NITRITE,URINE NEGATIVE (NEGATIVE); PROTEIN,URINE NEGATIVE (NEGATIVE)
[2021-06-19 13:01] LABS: BACTERIA,URINE TRACE /HPF; WBC,URINE 0-2 /HPF
--- NOTE | 2021-06-19 13:24 | Diagnostic Imaging Report ---
PROCEDURE: CT urinary tract, rule out kidney stone. TECHNIQUE: Multiple contiguous axial images were obtained through the abdomen and pelvis without the use of intravenous contrast. Auto Exposure Controls were utilized during the CT exam to meet ALARA standards for radiation dose reduction. INDICATION: Follow-up urinary obstruction. Possible ureteral calculus. COMPARISON: 06/15/2021 FINDINGS: Included portions of the lung bases are clear. CT ABDOMEN: Again identified is mild right-sided hydroureteronephrosis. Right ureter is difficult to follow in a contiguous fashion, but there is calculus within the lower right hemipelvis that measures approximately 3 mm and is presumed to be within the distal right ureter. This is felt to be stable in position when compared to 06/15/2021. No other renal or ureteral calculi are seen. There is no hydroureteronephrosis or other evidence of obstruction on the left. The adrenal glands, spleen, pancreas, and liver have an unremarkable noncontrast CT appearance. Small bowel loops are nondistended. Normal appendix is identified. There is no loculated fluid collection, free fluid or free air within the abdomen. No abnormal mesenteric or retroperitoneal adenopathy is seen. Osseous structures show no acute abnormalities. CT PELVIS: Again, there is 3 mm calculus identified in the distal right ureter. No additional calculi are seen within urinary bladder. Urinary bladder is opacified. There is no loculated fluid collection free fluid or free air within the pelvis. No abnormal adenopathy is seen. Osseous structures show no acute abnormalities. IMPRESSION: 1. Redemonstration 3 mm calculus within the distal right ureter. Again, this appears to be in stable position compared to prior exam. Additionally, there is persistent mild right-sided hydroureteronephrosis. Dictated by: Dictated on workstation # [id number]
[2021-06-19 14:30] VITALS: BP 128/78
== END 2021-06-19 14:30 | disposition home or self-care (01) ==
LOC: EDUNIT# 11:36 → ER 11:37
DX: N13.2 Hydronephrosis with renal and ureteral calculous obstruction (principal)
CPT/HCPCS: 36415; 74176; 80048; 81000; 85025